=== PATIENT | female | born 1950 | race Caucasian/White ===

== ENCOUNTER → 2017-02-09 | Outpatient (CLI) | payer MEDICARE ==
--- NOTE | 2017-02-09 14:17 | MM ---
Reason for exam: screening (asymptomatic). Last mammogram was performed 1 year and 1 month ago. History: Patient is postmenopausal and has history of other cancer at age 61. Benign excisional biopsy of the left breast. Took hormonal contraceptives for 2 years beginning at age 17. Took estrogen for 6 years beginning at age 49. Took progesterone for 6 years beginning at age 49. Physical Findings: A clinical breast exam by your physician is recommended on an annual basis and results should be correlated with mammographic findings. MG 3D Screening Mammo W/Cad Bilateral CC and MLO view(s) were taken. Prior study comparison: December 28, 2015, bilateral MG 3d screening mammo w/cad. December 24, 2013, bilateral MG screening mammo w CAD. The breast tissue is heterogeneously dense. This may lower the sensitivity of mammography. There is no discrete abnormality. No significant changes when compared with prior studies. ASSESSMENT: Negative, BI-RAD 1 RECOMMENDATION: Routine screening mammogram of the right breast in 1 year.
== END ==
LOC: RADMAMWWP 11:05
PROVIDERS: ATTEND Obstetrics & Gynecology
DX: Z12.31 Encounter for screening mammogram for malignant neoplasm of breast (principal)
CPT/HCPCS: 77063; G0202

== ENCOUNTER → 2018-02-22 | Outpatient (CLI) | payer MEDICARE ==
--- NOTE | 2018-02-23 10:26 | MM ---
Reason for exam: screening (asymptomatic). Last mammogram was performed 1 year ago. History: Patient is postmenopausal and has history of other cancer at age 61. Benign excisional biopsy of the left breast. Took hormonal contraceptives for 2 years beginning at age 17. Took estrogen for 6 years beginning at age 49. Took progesterone for 6 years beginning at age 49. Physical Findings: A clinical breast exam by your physician is recommended on an annual basis and results should be correlated with mammographic findings. MG 3D Screening Mammo W/Cad Bilateral CC and MLO view(s) were taken. Prior study comparison: February 09, 2017, bilateral MG 3d screening mammo w/cad. December 28, 2015, bilateral MG 3d screening mammo w/cad. The breast tissue is heterogeneously dense. This may lower the sensitivity of mammography. There is no discrete abnormality. No significant changes when compared with prior studies. ASSESSMENT: Negative, BI-RAD 1 RECOMMENDATION: Routine screening mammogram of both breasts in 1 year.
== END | disposition home or self-care (01) ==
LOC: RADMAMWWP 07:03
PROVIDERS: ATTEND Obstetrics & Gynecology
DX: Z12.31 Encounter for screening mammogram for malignant neoplasm of breast (principal)
CPT/HCPCS: 77063; 77067

== ENCOUNTER → 2019-02-25 | Outpatient (CLI) | payer MEDICARE ==
--- NOTE | 2019-02-26 10:19 | MM ---
Reason for exam: screening (asymptomatic). Last mammogram was performed 1 year ago. History: Patient is postmenopausal and has history of other cancer at age 61. Benign excisional biopsy of the left breast. Took hormonal contraceptives for 2 years beginning at age 17. Took estrogen for 6 years beginning at age 49. Took progesterone for 6 years beginning at age 49. Physical Findings: A clinical breast exam by your physician is recommended on an annual basis and results should be correlated with mammographic findings. MG 3D Screening Mammo W/Cad Bilateral CC and MLO view(s) were taken. Prior study comparison: February 22, 2018, bilateral MG 3d screening mammo w/cad. February 09, 2017, bilateral MG 3d screening mammo w/cad. The breast tissue is heterogeneously dense. This may lower the sensitivity of mammography. Asymmetric breast tissue left subareolar level. There is no discrete abnormality. ASSESSMENT: Negative, BI-RAD 1 RECOMMENDATION: Routine screening mammogram of both breasts in 1 year.
== END | disposition home or self-care (01) ==
LOC: RADMAMWWP 09:46
PROVIDERS: ATTEND Obstetrics & Gynecology
DX: Z12.31 Encounter for screening mammogram for malignant neoplasm of breast (principal)
CPT/HCPCS: 77063; 77067

== ENCOUNTER → 2020-03-23 | Outpatient (CLI) | payer MEDICARE ==
--- NOTE | 2020-03-23 15:50 | BD ---
EXAMINATION TYPE: Axial Bone Density DATE OF EXAM: 03/23/2020 COMPARISON: DEXA December 28, 2015. CLINICAL HISTORY: Postmenopausal female. Height: 68 Weight: 162.2 FRAX RISK QUESTIONS: Alcohol (3 or more units per day): no Family History (Parent hip fracture): no Glucocorticoids (More than 3mos): no (Ex: prednisone, prednisolone, methylprednisolone, dexamethasone, and hydrocortisone). History of Fracture in Adulthood: no Secondary Osteoporosis: 1. Type 1 Diabetes: no 2. Hyperthyroidism: no 3. Menopause before 45: no 4. Malnutrition: no 5. Chronic liver disease: no Rheumatoid Arthritis: no Current Tobacco Use: no RISK FACTORS HISTORY OF: Family History of Osteoporosis: no Active: yes Diet low in dairy products/other sources of calcium: yes Postmenopausal woman: age 52 Lost more than 2 inches in height since high school: yes MEDICATIONS: Lipitor, vit d Thyroid Medications: lavoxil How Lon years Additional History: EXAM MEASUREMENTS: Bone mineral densitometry was performed using the [employer] System. Bone mineral density as measured about the Lumbar spine is: ----- L1-L4(G/cm2): 1.766 T Score Values are as follows: ----- L2: 6.4 ----- L3: 5.0 ----- L4: 3.7 ----- L1-L4: 4.9 Bone mineral density has: increased 0.5 % since study of: 12.28.2015 Bone mineral density about the R hip (g/cm2): 1.032 Bone mineral density about the L hip (g/cm2): 0.996 T Score values are as follows: -----R Neck: 0.0 -----L Neck: -0.3 -----R Total: -0.2 -----L Total: -0.4 Bone mineral density has: decreased -5.3 % since study of: 12.28.2015 IMPRESSION: Normal (Values between +1 and -1 indicate normal bone mass). Consider repeating this study in 5 year s or sooner if there is some new clinical indication. NOTE: T-SCORE=SD OF THE YOUNG ADULT MEAN.
--- NOTE | 2020-03-24 08:30 | MM ---
Reason for exam: screening (asymptomatic). Last mammogram was performed 1 year and 1 month ago. History: Patient is postmenopausal and has history of other cancer at age 61. Benign excisional biopsy of the left breast. Took hormonal contraceptives for 2 years beginning at age 17. Took estrogen for 6 years beginning at age 49. Took progesterone for 6 years beginning at age 49. Physical Findings: A clinical breast exam by your physician is recommended on an annual basis and results should be correlated with mammographic findings. MG 3D Screening Mammo W/Cad Bilateral CC and MLO view(s) were taken. Prior study comparison: February 25, 2019, bilateral MG 3d screening mammo w/cad. February 22, 2018, bilateral MG 3d screening mammo w/cad. The breast tissue is heterogeneously dense. This may lower the sensitivity of mammography. No significant changes when compared with prior studies. ASSESSMENT: Benign, BI-RAD 2 RECOMMENDATION: Routine screening mammogram of both breasts in 1 year.
== END | disposition home or self-care (01) ==
LOC: RADMAMWWP 14:41
PROVIDERS: ATTEND Obstetrics & Gynecology
DX: Z12.31 Encounter for screening mammogram for malignant neoplasm of breast (principal); N95.1 Menopausal and female climacteric states
CPT/HCPCS: 77063; 77067; 77080

== ENCOUNTER → 2021-04-20 | Outpatient (CLI) | payer MEDICARE ==
--- NOTE | 2021-04-21 09:18 | MM ---
Reason for exam: screening (asymptomatic). Last mammogram was performed 1 year and 1 month ago. History: Patient is postmenopausal and has history of other cancer at age 61. Benign excisional biopsy of the left breast. Took hormonal contraceptives for 2 years beginning at age 17. Took estrogen for 6 years beginning at age 49. Took progesterone for 6 years beginning at age 49. Physical Findings: A clinical breast exam by your physician is recommended on an annual basis and results should be correlated with mammographic findings. MG 3D Screening Mammo W/Cad Bilateral CC and MLO view(s) were taken. Prior study comparison: March 23, 2020, bilateral MG 3d screening mammo w/cad. February 25, 2019, bilateral MG 3d screening mammo w/cad. The breast tissue is heterogeneously dense. This may lower the sensitivity of mammography. Stable benign calcifications. There is no discrete abnormality. No significant changes when compared with prior studies. ASSESSMENT: Benign, BI-RAD 2 RECOMMENDATION: Routine screening mammogram of both breasts in 1 year.
== END | disposition home or self-care (01) ==
LOC: RADMAMWWP 10:16
PROVIDERS: ATTEND Obstetrics & Gynecology
DX: Z12.31 Encounter for screening mammogram for malignant neoplasm of breast (principal); Z78.0 Asymptomatic menopausal state; Z85.9 Personal history of malignant neoplasm, unspecified; Z79.3 Long term (current) use of hormonal contraceptives
CPT/HCPCS: 77063; 77067

== ENCOUNTER → 2022-06-01 | Outpatient (CLI) | payer MEDICARE ==
--- NOTE | 2022-06-02 08:56 | MM ---
Reason for Exam: Screening (asymptomatic). Last mammogram was performed 1 year(s) and 1 month(s) ago. Patient History: Menarche at age 11. First Full-Term at age 23. Postmenopausal. Other cancer, age 61. Estrogen for 6 years from age 49 until age 55. Progesterone for 6 years from age 49 until age 55. Hormonal Contraceptives for 2 years from age 17 until age 22. Benign Excisional Biopsy on the left side. Risk Values: Magalis 5 year model risk: 2.3%. NCI Lifetime model risk: 5.3%. Prior Study Comparison: 02/25/2019 Bilateral Screening Mammogram, [facility]. 03/23/2020 Bilateral Screening Mammogram, [facility]. 04/20/2021 Bilateral Screening Mammogram, [facility]. Tissue Density: There are scattered fibroglandular densities. Findings: Analyzed By CAD. There is no suspicious new group of microcalcifications or new suspicious mass in either breast. Overall Assessment: Negative, BI-RAD 1 Management: Screening Mammogram of both breasts in 1 year. A clinical breast exam by your physician is recommended on an annual basis and results should be correlated with mammographic findings. Electronically signed and approved by: Claudio Tavera M.D.
--- NOTE | 2022-06-02 08:56 | MM ---
Reason for Exam: Screening (asymptomatic). Last mammogram was performed 1 year(s) and 1 month(s) ago. Patient History: Menarche at age 11. First Full-Term at age 23. Postmenopausal. Other cancer, age 61. Estrogen for 6 years from age 49 until age 55. Progesterone for 6 years from age 49 until age 55. Hormonal Contraceptives for 2 years from age 17 until age 22. Benign Excisional Biopsy on the left side. Risk Values: Magalis 5 year model risk: 2.3%. NCI Lifetime model risk: 5.3%. Prior Study Comparison: 02/25/2019 Bilateral Screening Mammogram, [facility]. 03/23/2020 Bilateral Screening Mammogram, [facility]. 04/20/2021 Bilateral Screening Mammogram, [facility]. Tissue Density: There are scattered fibroglandular densities. Findings: Analyzed By CAD. There is no suspicious new group of microcalcifications or new suspicious mass in either breast. Overall Assessment: Negative, BI-RAD 1 Management: Screening Mammogram of both breasts in 1 year. A clinical breast exam by your physician is recommended on an annual basis and results should be correlated with mammographic findings. Electronically signed and approved by: Claudio Tavera M.D.
== END | disposition home or self-care (01) ==
LOC: RADMAMWWP 09:39
PROVIDERS: ATTEND Obstetrics & Gynecology
DX: Z12.31 Encounter for screening mammogram for malignant neoplasm of breast (principal); Z78.0 Asymptomatic menopausal state
CPT/HCPCS: 77063; 77067

== ENCOUNTER → 2023-06-29 | Outpatient (CLI) | payer MEDICARE ==
--- NOTE | 2023-07-02 16:32 | MM ---
Reason for Exam: Screening (asymptomatic). Last mammogram was performed 1 year(s) and 1 month(s) ago. Patient History: Menarche at age 11. First Full-Term at age 23. Postmenopausal. Other cancer, age 61. Estrogen for 6 years from age 49 until age 55. Progesterone for 6 years from age 49 until age 55. Hormonal Contraceptives for 2 years from age 17 until age 22. Benign Excisional Biopsy on the left side. Risk Values: Magalis 5 year model risk: 2.3%. NCI Lifetime model risk: 5.0%. Prior Study Comparison: 03/23/2020 Bilateral Screening Mammogram, [facility]. 04/20/2021 Bilateral Screening Mammogram, [facility]. 06/01/2022 Bilateral MG 3D screening mammo w/cad, [facility]. Tissue Density: There are scattered fibroglandular densities. Findings: Analyzed By CAD. There is no suspicious group of microcalcifications or new suspicious mass in either breast. Overall Assessment: Negative, BI-RAD 1 Management: Screening Mammogram of both breasts in 1 year. . Patient should continue monthly self-breast exams. A clinical breast exam by your physician is recommended on an annual basis. This exam should not preclude additional follow-up of suspicious palpable abnormalities. Note on Magalis scores and lifetime risk: 1. A Magalis score greater than 3% is considered moderate risk. If this is the case, consider specialist referral to assess eligibility for a risk reducing agent. 2. If overall lifetime risk for the development of breast cancer is 20% or higher, the patient may qualify for future screening with alternating mammogram and breast MRI. Electronically signed and approved by: Karla Kruger M.D. Radiologist
== END | disposition home or self-care (01) ==
LOC: RADMAMWWP 11:10
PROVIDERS: ATTEND Obstetrics & Gynecology
DX: Z12.31 Encounter for screening mammogram for malignant neoplasm of breast (principal); Z78.0 Asymptomatic menopausal state
CPT/HCPCS: 77063; 77067

== ENCOUNTER 2024-01-16 11:00 | Day surgery (SDC) | payer MEDICARE ==
[2024-01-12 10:36] VITALS: BMI 22.8
[~2024-01-16 11:00] MED LIST: LIDOCAINE 1% (10MG/ML) FOR IV START INTRADERMA PRN
[2024-01-16] MEDS: IV FLUID CONTINUATION 1,000 ML IV ONE (11:37)
[2024-01-16 11:45] VITALS: TEMP 97.6
[2024-01-16] MEDS: LACTATED RINGERS 1,000 ML IV SCH (11:48)
[2024-01-16] MEDS ORDERED: PROPOFOL 10 MG/ML 20 ML VIAL IV ONE (11:50)
--- NOTE | 2024-01-16 11:56 | P.GSHP ---
History of Present Illness H&P Date: 01/16/24 Chief Complaint: Colon cancer screening 73-year-old female for colonoscopy today. Last colonoscopy 7 years ago. No bowel complaints. No family history of colon cancer. May have had a polyp once on one of her earlier colonoscopies. Past Medical History Past Medical History: Cancer, Osteoarthritis (OA), Thyroid Disorder Additional Past Medical History / Comment(s): Hx skin cancer. History of Any Multi-Drug Resistant Organisms: None Reported Past Surgical History: Joint Replacement, Orthopedic Surgery Additional Past Surgical History / Comment(s): Left knee replacement, toe surgery, skin cancer removed. Past Anesthesia/Blood Transfusion Reactions: No Reported Reaction Smoking Status: Never smoker - Past Family History Mother Family Medical History: No Reported History Medications and Allergies Home Medications Medication Instructions Recorded Confirmed Type Aspirin [Adult Low Dose Aspirin EC] 81 mg PO HS 01/12/24 01/16/24 History Atorvastatin [Lipitor] 20 mg PO DAILY 01/12/24 01/16/24 History Ergocalciferol [Vitamin D2 (1250 1,250 mcg PO Q14D 01/12/24 01/16/24 History Mcg = 99434 Iu)] Fish Oil (Unknown Dose) 1 tab PO DAILY 01/12/24 01/16/24 History Levothyroxine Sodium [Levoxyl] 50 mcg PO DIRECTED 01/12/24 01/16/24 History Levothyroxine Sodium [Levoxyl] 75 mcg PO DIRECTED 01/12/24 01/16/24 History Vitamin C (Unknown Dose) 1 tab PO DAILY 01/12/24 01/16/24 History Allergies Allergy/AdvReac Type Severity Reaction Status Date / Time No Known Allergies Allergy Verified 01/16/24 11:41 Surgical - Exam Vital Signs Temp Pulse Resp BP Pulse Ox 97.6 F 80 16 136/96 97 01/16/24 11:44 01/16/24 11:44 01/16/24 11:44 01/16/24 11:44 01/16/24 11:44 Physical exam: General: Well-developed, well-nourished HEENT: Normocephalic, sclerae nonicteric Abdomen: Nontender, nondistended Extremities: No edema Neuro: Alert and oriented Assessment and Plan (1) Colon cancer screening Narrative/Plan: Will proceed with colonoscopy at this time. Current Visit: Yes Status: Acute Code(s): Z12.11 - ENCOUNTER FOR SCREENING FOR MALIGNANT NEOPLASM OF COLON SNOMED Code(s): 056555111
--- NOTE | 2024-01-16 12:10 | P.PCN ---
Date of Procedure: 01/16/24 Procedure(s) Performed: PREOPERATIVE DIAGNOSIS: Colon cancer screening POSTOPERATIVE DIAGNOSIS: Mild diverticulosis PROCEDURE: Colonoscopy ANESTHESIA: MAC SURGEON: Charlie Luis M.D. SPECIMENS: None ENDOSCOPIC PROCEDURE: The patient was placed on the endoscopy table in the left decubitus position. The Olympus colonoscope was inserted into the anus and passed under direct visualization to the base of the cecum. The appendiceal orifice was visualized. From that point the scope was slowly withdrawn inspecting all surfaces carefully. There were no neoplastic inflammatory or polypoid lesions throughout the cecum, ascending, transverse, descending, sigmoid and rectum. There was mild left-sided diverticulosis noted. Digital rectal examination was normal. The patient was taken to the recovery room in stable condition per anesthesia guidelines. RECOMMENDATIONS: Resume diet. Consider repeat colonoscopy 10 years.
[2024-01-16 12:34] VITALS: BP 117/72; PULSE 59; RESP 16
== END 2024-01-16 12:59 | disposition home or self-care (01) ==
LOC: ORWHC2ENDO 11:00
PROVIDERS: ATTEND Surgery
DX: Z12.11 Encounter for screening for malignant neoplasm of colon (principal); K57.30 Diverticulosis of large intestine without perforation or abscess without bleeding; M19.90 Unspecified osteoarthritis, unspecified site; E07.9 Disorder of thyroid, unspecified; Z85.828 Personal history of other malignant neoplasm of skin; Z79.82 Long term (current) use of aspirin; Z79.890 Hormone replacement therapy; Z79.899 Other long term (current) drug therapy
CPT/HCPCS: J2704; G0121

== ENCOUNTER → 2024-07-18 | Outpatient (CLI) | payer MEDICARE ==
--- NOTE | 2024-07-22 12:41 | MM ---
Reason for Exam: Screening (asymptomatic). Last mammogram was performed 1 year(s) and 1 month(s) ago. Patient History: Menarche at age 11. First Full-Term at age 23. Postmenopausal. Other cancer, age 61. Estrogen for 6 years from age 49 until age 55. Progesterone for 6 years from age 49 until age 55. Hormonal Contraceptives for 2 years from age 17 until age 22. Benign Excisional Biopsy on the left side. Risk Values: Magalis 5 year model risk: 2.3%. NCI Lifetime model risk: 4.7%. Prior Study Comparison: 04/20/2021 Bilateral Screening Mammogram, [facility]. 06/01/2022 Bilateral MG 3D screening mammo w/cad, [facility]. 06/29/2023 Bilateral MG 3D screening mammo w/cad, [facility]. Tissue Density: The breasts are heterogeneously dense, which may obscure small masses. Findings: Analyzed By CAD. Right breast: There is no suspicious group of microcalcifications or new suspicious mass. Left breast: There is no suspicious group of microcalcifications or new suspicious mass. Overall Assessment: Negative, BI-RAD 1 Management: Screening Mammogram of both breasts in [address] [facility] will attempt to contact patient to return for supplemental views and ultrasound if indicated. Patient should continue monthly self-breast exams. A clinical breast exam by your physician is recommended on an annual basis. This exam should not preclude additional follow-up of suspicious palpable abnormalities. Note on Magalis scores and lifetime risk: 1. A Magalis score greater than 3% is considered moderate risk. If this is the case, consider specialist referral to assess eligibility for a risk reducing agent. 2. If overall lifetime risk for the development of breast cancer is 20% or higher, the patient may qualify for future screening with alternating mammogram and breast MRI. [facility], , 07/22/2024 12:36 PM. Electronically signed and approved by: Lobito Prado DO
== END | disposition home or self-care (01) ==
LOC: RADMAMWWP 15:56
PROVIDERS: ATTEND Obstetrics & Gynecology
DX: Z12.31 Encounter for screening mammogram for malignant neoplasm of breast (principal); Z78.0 Asymptomatic menopausal state; R92.333 Mammographic heterogeneous density, bilateral breasts
CPT/HCPCS: 77063; 77067

== ENCOUNTER → 2025-01-21 | Outpatient (CLI) | payer MEDICARE ==
--- NOTE | 2025-01-21 12:13 | CA ---
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 ICD-10 Codes: Patient History: Medications: levothyroxine, lipitor Meds past 24 hrs: Pretest Chest Pain: STRESS TEST Chapo Protocol Exercise Duration (min:sec): 06:[address] Depressions (mm): Angina Score: Jean Score: Resting HR (bpm): 77 Peak HR (bpm): 152 Resting BP (mmHg): 133 / 81 Peak BP (mmHg): 196 / 89 MPHR: 144 Target HR: 122 % MPHR: 106 METS: 7.1 Total Dose: Peak Dose: Atropine: Double Product: 25179 BP Response: Stress Termination: Reached target heart rate Stress Symptoms: no symptoms Stress Summary: The patient's target heart rate was achieved ECG ANALYSIS Resting ECG: Sinus rhythm. Normal conduction. No arrhythmias. Nonspecific ST-T abnormality. Stress ECG: Equivocal. Nonspecific ST-T abnormality. Ventricular premature contraction. CONCLUSIONS 1. Average exercise tolerance 2. Occasional PVCs during exercise 3. Half millimeter ST segment depression at peak exercise, nondiagnostic 4. If clinically indicated and imaging stress test will be helpful Dr. Mikal Mcfadden MD (Electronically Signed) Final Date: 21 January 2025 12:12
--- NOTE | 2025-01-21 13:07 | NM ---
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 At peak stress 26.2 mCi Tc 99m Sestamibi - Stress images obtained 20 minutes post injection The patient was stressed with 0.4mg Lexiscan. FINDINGS: No fixed defects are evident. No reversible stress defects on Spect images. Wall motion is normal. Ejection fraction is calculated to be 56 %. IMPRESSION: 1. No stress-induced ischemic changes [facility], , 01/21/2025 1:05 PM
== END | disposition home or self-care (01) ==
LOC: RADNMMAIN 08:43
PROVIDERS: ATTEND Internal Medicine
DX: I25.10 Atherosclerotic heart disease of native coronary artery without angina pectoris (principal); R94.31 Abnormal electrocardiogram [ECG] [EKG]
CPT/HCPCS: 93017; 78452; A9500

== ENCOUNTER → 2025-03-11 | Outpatient (CLI) | payer MEDICARE ==
--- NOTE | 2025-03-11 14:53 | US ---
EXAMINATION TYPE: US carotid duplex BILAT DATE OF EXAM: 03/11/2025 COMPARISON: NONE CLINICAL INDICATION: Female, 74 years old with history of I65.23 CAROT STENOSIS JODI; Patient denies a ny signs, symptoms, or relevant history Additional History: .... TECHNIQUE: Grayscale, color Doppler and spectral Doppler evaluation of the bilateral carotid systems and vertebral arteries. Indirect Doppler criteria was utilized. FINDINGS: EXAM MEASUREMENTS: RIGHT: Peak Systolic Velocity (PSV) cm/sec ----- Right CCA: 81 ----- Right ICA: 95 ----- Right ECA: 82 ICA/CCA ratio: 1.2 RIGHT: End Diastole cm/sec ----- Right CCA: 23 ----- Right ICA: 34 ----- Right ECA: 11 LEFT: Peak Systolic Velocity (PSV) cm/sec ----- Left CCA: 74 ----- Left ICA: 87 ----- Left ECA: 68 ICA/CCA ratio: 1.2 LEFT: End Diastole cm/sec ----- Left CCA: 22 ----- Left ICA: 27 ----- Left ECA: 11 VERTEBRALS (direction of flow): Right Vertebral: Antegrade Left Vertebral: Antegrade Rhythm: Normal [employer] NOTES: No intimal thickening, plaque, or elevated velocities seen. Color Doppler imaging shows patency with blood flow throughout the carotid artery. Spectral waveforms are within normal limits. IMPRESSION: Right: No hemodynamically significant stenosis. Left: No hemodynamically significant stenosis. Criteria for Assigning % of Stenosis / Diameter reduction (Estimation based on the indirect measurements of the internal carotid artery velocities (ICA PSV). 1. Normal (no stenosis)=ICA PSV < 180 cm/s: ratio < 2.0: ICA EDV<40 cm/s. 2. Less than 50% stenosis=ICA PSV < 180 cm/s: ratio < 2.0: ICA EDV<40 cm/s. 3. 50 to 69% stenosis=ICA PSV of 180 to 230 cm/s: ration 2.0 ? 4.0: ICA EDV 40-100 cm/s. PSV 125-180 cm/sec and ICA/CCA PSV Ratio ? 2.0 is also consistent with 50-69% stenosis 4. Greater than 70% stenosis to near occlusion= ICA PSV > 230 cm/s: ratio > 4.0: ICA EDV > 100 cm/s. 5. Near occlusion= ICA PSV velocities may be low or undetectable: variable ratio and ICA EDV. 6. Total occlusion=unable to detect flow. [facility], , 03/11/2025 2:51 PM
--- NOTE | 2025-03-12 07:46 | CA ---
Transthoracic Echo Report Name: Shira Magana Age: 74 Gender: F : 1950 Exam Date: 03/11/2025 14:51 Exam Location: [place] Echo Ht (in): 69 Wt (lb): 155 Ordering Physician: Rachel Ritter MD Attending/Referring Phys: Rachel Ritter MD Impregnator Helper Skyla Bryant, GUERLINE Procedure CPT: Indications: I25.10 Cardiac Hx: Technical Quality: Fair Contrast 1: Total Dose (mL): Contrast 2: Total Dose (mL): MEASUREMENTS (Male / Female) Normal Values 2D ECHO LV Diastolic Diameter PLAX 4.2 cm 4.2 - 5.9 / 3.9 - 5.3 cm LV Systolic Diameter PLAX 2.4 cm IVS Diastolic Thickness 1.0 cm 0.6 - 1.0 / 0.6 - 0.9 cm LVPW Diastolic Thickness 1.3 cm 0.6 - 1.0 / 0.6 - 0.9 cm LV Relative Wall Thickness 0.6 RV Internal Dim ED PLAX 3.1 cm LA Systolic Diameter LX 3.9 cm 3.0 - 4.0 / 2.7 - 3.8 cm LV Diastolic Volume MOD BP 60.9 cm??? 67 - 155 / 56 - 104 cm??? LV Systolic Volume MOD BP 22.2 cm??? 22 - 58 / 19 - 49 cm??? LV Ejection Fraction MOD BP 63.5 % >= 55 % LV Cardiac Index MOD BP 1481.8 cm???/min???m??? LV Diastolic Volume MOD 4C 51.3 cm??? LV Systolic Volume MOD 4C 23.0 cm??? LV Ejection Fraction MOD 4C 55.3 % LV Cardiac Index MOD 4C 1086.9 cm???/min???m??? LV Diastolic Length 4C 7.1 cm LV Systolic Length 4C 6.1 cm LV Diastolic Volume MOD 2C 72.7 cm??? LV Systolic Volume MOD 2C 20.8 cm??? LV Ejection Fraction MOD 2C 71.3 % LV Cardiac Index MOD 2C 1988.0 cm???/min???m??? LV Diastolic Length 2C 7.0 cm LV Systolic Length 2C 6.4 cm LA Volume 53.3 cm??? 18 - 58 / 22 - 52 cm??? LA Volume Index 28.8 cm???/m??? 16 - 28 cm???/m??? M-MODE Aortic Root Diameter MM 2.4 cm LA Systolic Diameter MM 3.7 cm LA Ao Ratio MM 1.5 AV Cusp Separation MM 1.7 cm DOPPLER MV Area PHT 2.2 cm??? Mitral E Point Velocity 60.0 cm/s Mitral A Point Velocity 77.2 cm/s Mitral E to A Ratio 0.8 MV Deceleration Time 349.8 ms TR Peak Velocity 180.5 cm/s TR Peak Gradient 13.0 mmHg FINDINGS Left Ventricle Left ventricular ejection fraction is estimated at 55-60%. Mildly increased left ventricular wall thickness. Normal left ventricular systolic function with no obvious regional wall motion abnormalities. Left ventricular cavity size normal. Right Ventricle Normal right ventricular size and function. Right ventricular systolic pressure within normal limits. Right Atrium Mild right atrial dilatation. Left Atrium Mildly increased left atrial diameter. Mildly increased left atrial volume. Mitral Valve Structurally normal mitral valve. Mild mitral regurgitation. No mitral stenosis. Aortic Valve Trileaflet aortic valve. No aortic valve stenosis or regurgitation. Tricuspid Valve Structurally normal tricuspid valve. Mild tricuspid regurgitation. No tricuspid stenosis. Pulmonic Valve Structurally normal pulmonic valve. Trace pulmonic regurgitation. No pulmonic stenosis. Pericardium No pericardial or pleural effusion. Aorta Normal size aortic root and proximal ascending aorta. CONCLUSIONS 1. Normal left ventricular size and systolic function 2. Mitral and tricuspid regurgitation and no evidence of pulmonary hypertension Previewed by: Dr. Mikal Mcfadden MD (Electronically Signed) Final Date: 12 March 2025 07:45
== END | disposition home or self-care (01) ==
LOC: RADUSWWP 14:11
PROVIDERS: ATTEND Internal Medicine
DX: I65.23 Occlusion and stenosis of bilateral carotid arteries (principal); I25.10 Atherosclerotic heart disease of native coronary artery without angina pectoris; I08.1 Rheumatic disorders of both mitral and tricuspid valves
CPT/HCPCS: 93306; 93880